=== PATIENT | female | born 1960 | race Caucasian/White ===

== ENCOUNTER 2018-07-03 12:06 | Inpatient (IN) | payer MEDICAID ==
[~2018-07-03] VITALS: Ht 167.6 cm; Wt 106.6 kg
[2018-07-03] MEDS ORDERED: SPIR25TA PO (12:50)
[2018-07-03] MEDS ORDERED: SACU1TAB PO (12:50)
[2018-07-03] MEDS ORDERED: CARV3.12 PO (12:50)
[2018-07-03] MEDS ORDERED: APIX5TAB PO (12:50)
[2018-07-03] MEDS ORDERED: FURO-151 PO (12:50)
[2018-07-03 13:31] LABS: BASOPHILS # (AUTO) 0.1 K/uL (0.0-8.0); EOSINOPHILS # (AUTO) 0.1 K/uL (0.0-0.7); EOSINOPHILS % (AUTO) 0.9 % (0.0-7.0); HEMOGLOBIN 15.8 g/dL (10.9-14.3); LYMPHOCYTES # (AUTO) 2.8 K/uL (20.0-40.0); LYMPHOCYTES % (AUTO) 23.1 % (20.5-51.5); MEAN CORPUSCULAR HEMOGLOBIN 28.1 uug (24.7-32.8); MEAN CORPUSCULAR HGB CONC 33 g/dL (32.3-35.6); MEAN CORPUSCULAR VOLUME 85.6 fL (75.5-95.3); MONOCYTES # (AUTO) 0.7 K/uL (2.0-10.0); MONOCYTES % (AUTO) 6.2 % (0.0-11.0); NEUTROPHILS # (AUTO) 8.2 K/uL (1.8-8.9); NEUTROPHILS % (AUTO) 68.8 % (38.5-71.5); PLATELET COUNT (AUTO) 546 K/uL (179-408); WHITE BLOOD COUNT (AUTO) 11.9 K/uL (3.8-11.8)
[2018-07-03 13:36] LABS: CREATININE 1.6 mg/dL (0.6-1.3); POTASSIUM 4.8 mmol/L (3.5-5.1)
[2018-07-03 13:52] LABS: BILIRUBIN,DIRECT 0.1 mg/dL (0.0-0.2); BILIRUBIN,TOTAL 0.5 mg/dL (0.2-1.0); TOTAL PROTEIN, SERUM 9.7 g/dL (6.4-8.2)
[2018-07-03] MEDS ORDERED: ONDANSETRON 4 MG/2 ML VIAL IV ONE (14:15)
[2018-07-03] MEDS ORDERED: ONDANSETRON 4 MG/2 ML VIAL ONE (14:20)
[2018-07-03] MEDS ORDERED: HYDROCODONE/APAP 10-325 MG TABLET PO ONE (15:15)
[2018-07-03] MEDS ORDERED: HYDROCODONE/APAP 10-325 MG TABLET ONE (15:15)
[2018-07-03 16:00] VITALS: BP 106/63
[2018-07-03] MEDS ORDERED: HOME MED MISCELLANEOUS PO SCH (17:00)
[2018-07-03] MEDS ORDERED: HYDROCODONE/APAP 5-325MG TABLET PO PRN (17:00)
[2018-07-03] MEDS ORDERED: Z GUARD REMEDY PASTE 57 GM TUBE TOP PRN (17:00)
[2018-07-03] MEDS ORDERED: MAGNESIUM HYDROXIDE 30 ML LIQUID UDC PO PRN (17:00)
[2018-07-03] MEDS ORDERED: ACETAMINOPHEN 325 MG TABLET PO PRN (17:00)
[2018-07-03] MEDS ORDERED: SWABABLE VALVE TRANSFER SET EA MC ONE (17:23)
[2018-07-03] MEDS ORDERED: NORMAL SALINE FLUSH 10 ML DISP.SYRIN ONE (17:23)
[2018-07-03] MEDS ORDERED: IOHEXOL 350 100 ML INFUS..BTL ONE (17:24)
[2018-07-03] MEDS ORDERED: IV NORMAL SALINE 250 ML IV ONE (17:24)
[2018-07-03] MEDS: ONDANSETRON 4 MG/2 ML VIAL IV PRN ×2 (18:21→23:44)
[2018-07-03 19:59] VITALS: BP 115/57
[2018-07-03] MEDS: ENTRESTO PO SCH (21:37)
[2018-07-03] MEDS: CARVEDILOL 3.125 MG TABLET PO SCH (21:38)
[2018-07-03] MEDS: MORPHINE SULFATE 2 MG/1 ML DISP.SYRIN IV PRN (22:34)
[2018-07-03] MEDS: TEMAZEPAM 15 MG CAPSULE PO PRN (23:46)
[2018-07-04 01:18] VITALS: BP 104/53
[2018-07-04] MEDS: MORPHINE SULFATE 2 MG/1 ML DISP.SYRIN IV PRN ×2 (03:17→08:17)
[2018-07-04 05:07] VITALS: BP 114/63
[2018-07-04] MEDS: ONDANSETRON 4 MG/2 ML VIAL IV PRN ×3 (05:47→21:04)
[2018-07-04 05:55] LABS: BASOPHILS # (AUTO) 0.1 K/uL (0.0-8.0); BASOPHILS % (AUTO) 1.4 % (0.0-2.0); EOSINOPHILS # (AUTO) 0.1 K/uL (0.0-0.7); HEMATOCRIT 42.5 % (31.2-41.9); HEMOGLOBIN 14.4 g/dL (10.9-14.3); LYMPHOCYTES # (AUTO) 2.8 K/uL (20.0-40.0); LYMPHOCYTES % (AUTO) 28.6 % (20.5-51.5); MEAN CORPUSCULAR HEMOGLOBIN 28.9 uug (24.7-32.8); MEAN CORPUSCULAR HGB CONC 34 g/dL (32.3-35.6); MEAN CORPUSCULAR VOLUME 85.5 fL (75.5-95.3); MONOCYTES % (AUTO) 9.9 % (0.0-11.0); NEUTROPHILS # (AUTO) 5.8 K/uL (1.8-8.9); NEUTROPHILS % (AUTO) 59.1 % (38.5-71.5); PLATELET COUNT (AUTO) 405 K/uL (179-408); RED BLOOD CELL COUNT(AUTO) 4.98 MIL/uL (3.63-4.92); WHITE BLOOD COUNT (AUTO) 9.7 K/uL (3.8-11.8)
[2018-07-04 06:18] LABS: CREATININE 1.3 mg/dL (0.6-1.3); MAGNESIUM 2.1 mg/dL (1.8-2.4); PHOSPHOROUS 4.4 mg/dL (2.5-4.9); POTASSIUM 3.7 mmol/L (3.5-5.1)
[2018-07-04 06:21] LABS: THYROID STIMULATING HORMONE 1.973 mIU/mL (0.358-3.740)
[2018-07-04] MEDS: PANTOPRAZOLE SODIUM 40 MG TABLET.DR PO SCH (06:46)
[2018-07-04] MEDS: SPIRONOLACTONE 25 MG TABLET PO SCH (08:15)
[2018-07-04] MEDS: CARVEDILOL 3.125 MG TABLET PO SCH ×2 (08:26→21:08)
[2018-07-04] MEDS: ENTRESTO PO SCH ×2 (08:29→21:09)
[2018-07-04] MEDS ORDERED: MORPHINE SULFATE 4 MG/1 ML DISP.SYRIN IV PRN (09:00)
[2018-07-04] MEDS ORDERED: FUROSEMIDE 40 MG TABLET PO SCH (09:00)
[2018-07-04] MEDS: LORAZEPAM 2 MG/1 ML VIAL IV PRN ×2 (09:52→23:00)
[2018-07-04 11:01] LABS: *BLOOD, URINE 1+ (NEGATIVE); *CLARITY,URINE CLEAR (CLEAR); *COLOR,URINE YELLOW (YELLOW); *KETONES,URINE 1+ (NEGATIVE); *UROBILINOGEN,URINE 0.2 E.U./dl (NORMAL); LEUKOCYTE ESTERASE ,URINE NEGATIVE (NEGATIVE); NITRITE, URINE NEGATIVE (NEGATIVE); PH,URINE 5.5 (5.0-8.0); UGLUCOSE NEGATIVE (NEGATIVE)
[2018-07-04 11:08] LABS: *BILIRUBIN,URIN 1+ (NEGATIVE)
[2018-07-04 11:09] LABS: WBC,URINE 20-50 /HPF (0-3)
[2018-07-04 11:10] LABS: BACTERIA,URINE FEW /HPF (NONE SEEN); SQUAMOUS EPITHELIAL CELL,UR MANY /HPF (NONE SEEN)
[2018-07-04] MEDS ORDERED: MORPHINE SULFATE 2 MG/1 ML DISP.SYRIN IV PRN ×2 (11:30→18:00)
[2018-07-04 12:17] VITALS: BP 104/62
[2018-07-04] MEDS ORDERED: MORPHINE SULFATE 2 MG/1 ML DISP.SYRIN IV STA (14:05)
[2018-07-04 15:21] VITALS: BP 90/58
[2018-07-04 15:59] LABS: AMYLASE 31 U/L (25-115); LIPASE 92 U/L (73-393)
[2018-07-04] MEDS: METOCLOPRAMIDE HCL 10 MG/2 ML VIAL IV SCH (17:00)
[2018-07-04 20:28] VITALS: BP 117/60
[2018-07-04] MEDS: ATORVASTATIN 40 MG TABLET PO SCH (21:07)
[2018-07-04] MEDS: MORPHINE SULFATE 4 MG/1 ML DISP.SYRIN IV PRN (21:09)
[2018-07-05] MEDS: METOCLOPRAMIDE HCL 10 MG/2 ML VIAL IV SCH ×5 (00:12→23:50)
[2018-07-05] MEDS: TEMAZEPAM 15 MG CAPSULE PO PRN ×2 (00:31→23:51)
[2018-07-05] MEDS: MORPHINE SULFATE 4 MG/1 ML DISP.SYRIN IV PRN ×3 (03:51→21:11)
[2018-07-05 05:06] VITALS: BP 106/62
[2018-07-05] MEDS ORDERED: METOCLOPRAMIDE HCL 10 MG/2 ML VIAL ONE (06:08)
[2018-07-05] MEDS: PANTOPRAZOLE SODIUM 40 MG TABLET.DR PO SCH (06:18)
[2018-07-05 07:18] LABS: BASOPHILS # (AUTO) 0.1 K/uL (0.0-8.0); BASOPHILS % (AUTO) 0.8 % (0.0-2.0); EOSINOPHILS # (AUTO) 0.1 K/uL (0.0-0.7); EOSINOPHILS % (AUTO) 0.8 % (0.0-7.0); HEMATOCRIT 42.4 % (31.2-41.9); HEMOGLOBIN 14.4 g/dL (10.9-14.3); LYMPHOCYTES # (AUTO) 2.9 K/uL (20.0-40.0); LYMPHOCYTES % (AUTO) 32.4 % (20.5-51.5); MEAN CORPUSCULAR HEMOGLOBIN 28.9 uug (24.7-32.8); MEAN CORPUSCULAR HGB CONC 34 g/dL (32.3-35.6); MEAN CORPUSCULAR VOLUME 84.8 fL (75.5-95.3); MONOCYTES # (AUTO) 0.9 K/uL (2.0-10.0); MONOCYTES % (AUTO) 9.6 % (0.0-11.0); NEUTROPHILS % (AUTO) 56.4 % (38.5-71.5)
[2018-07-05 07:19] LABS: BILIRUBIN,TOTAL 0.5 mg/dL (0.2-1.0); CREATININE 1.8 mg/dL (0.6-1.3); MAGNESIUM 2.2 mg/dL (1.8-2.4); PHOSPHOROUS 4.5 mg/dL (2.5-4.9); POTASSIUM 3.8 mmol/L (3.5-5.1); TOTAL PROTEIN, SERUM 8.4 g/dL (6.4-8.2)
[2018-07-05 07:24] LABS: PLATELET COUNT (AUTO) 241 K/uL (179-408)
[2018-07-05 08:00] VITALS: BP 104/52
[2018-07-05] MEDS: CARVEDILOL 3.125 MG TABLET PO SCH ×2 (09:00→20:22)
[2018-07-05] MEDS: SPIRONOLACTONE 25 MG TABLET PO SCH (09:14)
[2018-07-05] MEDS: ONDANSETRON 4 MG/2 ML VIAL IV PRN ×2 (09:15→20:24)
[2018-07-05] MEDS: ENTRESTO PO SCH ×2 (09:29→20:22)
[2018-07-05 11:16] VITALS: BP 92/51
[2018-07-05] MEDS: LORAZEPAM 2 MG/1 ML VIAL IV PRN (13:16)
[2018-07-05 14:24] LABS: *BILIRUBIN,URIN 1+ (NEGATIVE); *BLOOD, URINE NEGATIVE (NEGATIVE); *CLARITY,URINE SLIGHTLY CLOUDY (CLEAR); *COLOR,URINE YELLOW (YELLOW); *KETONES,URINE NEGATIVE (NEGATIVE); *UROBILINOGEN,URINE 0.2 E.U./dl (NORMAL); LEUKOCYTE ESTERASE ,URINE NEGATIVE (NEGATIVE); NITRITE, URINE NEGATIVE (NEGATIVE); PH,URINE 5.5 (5.0-8.0); UGLUCOSE NEGATIVE (NEGATIVE)
[2018-07-05 15:17] LABS: *CREATININE,URINE 348.2 mg/dL (30-125); *URINE TOTAL PROTEIN RANDOM 46.4 mg/dL (<150/24HR)
[2018-07-05 16:20] LABS: BACTERIA,URINE FEW /HPF (NONE SEEN); MUCUS,URINE MANY /LPF (0-FEW); RBC,URINE 0-3 /HPF (0-3); SQUAMOUS EPITHELIAL CELL,UR MODERATE /HPF (NONE SEEN)
[2018-07-05 18:09] VITALS: BP 90/54
[2018-07-05 20:10] VITALS: BP 105/54
[2018-07-05] MEDS: ATORVASTATIN 40 MG TABLET PO SCH (20:21)
[2018-07-06] MEDS: LORAZEPAM 2 MG/1 ML VIAL IV PRN ×2 (02:01→08:46)
[2018-07-06] MEDS: MORPHINE SULFATE 4 MG/1 ML DISP.SYRIN IV PRN ×2 (05:20→10:07)
[2018-07-06 05:36] VITALS: BP 100/54
[2018-07-06] MEDS ORDERED: METOCLOPRAMIDE HCL 10 MG/2 ML VIAL ONE (06:01)
[2018-07-06] MEDS: METOCLOPRAMIDE HCL 10 MG/2 ML VIAL IV SCH ×2 (06:30→12:00)
[2018-07-06] MEDS: PANTOPRAZOLE SODIUM 40 MG TABLET.DR PO SCH (06:30)
[2018-07-06 06:37] LABS: BILIRUBIN,TOTAL 0.5 mg/dL (0.2-1.0); CREATININE 1.4 mg/dL (0.6-1.3); MAGNESIUM 2.2 mg/dL (1.8-2.4); PHOSPHOROUS 3.4 mg/dL (2.5-4.9); POTASSIUM 3.5 mmol/L (3.5-5.1); TOTAL PROTEIN, SERUM 7.8 g/dL (6.4-8.2)
[2018-07-06 06:46] LABS: BASOPHILS # (AUTO) 0.1 K/uL (0.0-8.0); HEMOGLOBIN 13.4 g/dL (10.9-14.3); MEAN CORPUSCULAR HGB CONC 33 g/dL (32.3-35.6); MEAN CORPUSCULAR VOLUME 85.3 fL (75.5-95.3); NEUTROPHILS # (AUTO) 4.9 K/uL (1.8-8.9)
[2018-07-06 07:02] LABS: BASOPHILS % (AUTO) 1.2 % (0.0-2.0); EOSINOPHILS # (AUTO) 0.2 K/uL (0.0-0.7); EOSINOPHILS % (AUTO) 1.7 % (0.0-7.0); HEMATOCRIT 40.7 % (31.2-41.9); LYMPHOCYTES # (AUTO) 3.6 K/uL (20.0-40.0); LYMPHOCYTES % (AUTO) 37.1 % (20.5-51.5); MEAN CORPUSCULAR HEMOGLOBIN 28.2 uug (24.7-32.8); MONOCYTES # (AUTO) 0.9 K/uL (2.0-10.0); MONOCYTES % (AUTO) 9.4 % (0.0-11.0); NEUTROPHILS % (AUTO) 50.6 % (38.5-71.5); RED BLOOD CELL COUNT(AUTO) 4.77 MIL/uL (3.63-4.92); WHITE BLOOD COUNT (AUTO) 9.7 K/uL (3.8-11.8)
[2018-07-06 07:06] LABS: PLATELET COUNT (AUTO) 320 K/uL (179-408)
[2018-07-06] MEDS: ENTRESTO PO SCH (08:43)
[2018-07-06] MEDS: CARVEDILOL 3.125 MG TABLET PO SCH (08:45)
[2018-07-06 11:00] VITALS: BP 105/65
[2018-07-07 07:06] LABS: A/G RATIO 1.1 (0.7-1.7); ALBUMIN 3.9 g/dL (2.9-4.4); ALPHA-1-GLOBULIN 0.2 g/dL (0.0-0.4); BETA GLOBULIN 1.3 g/dL (0.7-1.3); GAMMA GLOBULIN 1.2 g/dL (0.4-1.8); GLOBULIN, TOTAL 3.7 g/dL (2.2-3.9); M-SPIKE Not Observed g/dL (Not Observed)
== END 2018-07-06 12:20 | disposition home health service (06) | DRG 194 ==
LOC: ER 12:06 → TELE3 15:24 → MEDSURG3 07-04 17:55
PROVIDERS: ADMIT Nurse Practitioner Acute Care; ATTEND Nurse Practitioner Acute Care
PROC: 05HY33Z Insertion of Infusion Device into Upper Vein, Percutaneous Approach (ICD-10-PCS; principal; 2018-07-03)
DX: I11.0 Hypertensive heart disease with heart failure (principal); N17.0 Acute kidney failure with tubular necrosis; K83.1 Obstruction of bile duct; K50.90 Crohn's disease, unspecified, without complications; E66.01 Morbid (severe) obesity due to excess calories; K31.84 Gastroparesis; I50.33 Acute on chronic diastolic (congestive) heart failure; Z86.711 Personal history of pulmonary embolism; Z90.49 Acquired absence of other specified parts of digestive tract; Z79.899 Other long term (current) drug therapy; Z90.710 Acquired absence of both cervix and uterus; E78.5 Hyperlipidemia, unspecified; Z79.01 Long term (current) use of anticoagulants; Z86.718 Personal history of other venous thrombosis and embolism; Z68.38 Body mass index [BMI] 38.0-38.9, adult; Z98.890 Other specified postprocedural states; I42.9 Cardiomyopathy, unspecified; F41.9 Anxiety disorder, unspecified; K76.0 Fatty (change of) liver, not elsewhere classified; Z87.891 Personal history of nicotine dependence
CPT/HCPCS: 36415; 36569; 70030-TC; 71045; 76700; 78579; 83690; 83735; 83970; 84100; 84155; 84156; 84165; 84300; 84443; 85025; 85730; 93005; 93307; A4663; A9540; A9567; G0378; J2060; J2270; J2405; J2765; J3490; J7050; Q9967

== ENCOUNTER 2018-07-11 11:07 | Emergency (ER) | payer MEDICAID ==
[~2018-07-11] VITALS: Ht 167.6 cm; Wt 106.6 kg
[~2018-07-11 11:07] MED LIST: APIX5TAB PO; CARV3.12 PO; SACU1TAB PO
--- NOTE | 2018-07-11 12:58 | NUR ---
Patient discharged to home in stable conditon. Written and verbal after care instructions given. Patient verbalizes understanding of instructions.
== END 2018-07-11 12:58 | disposition home or self-care (01) ==
LOC: ER 11:07
DX: S50.11XA Contusion of right forearm, initial encounter (principal); S80.02XA Contusion of left knee, initial encounter; S80.01XA Contusion of right knee, initial encounter; S90.32XA Contusion of left foot, initial encounter; S09.90XA Unspecified injury of head, initial encounter; I11.0 Hypertensive heart disease with heart failure; I50.9 Heart failure, unspecified; Z90.710 Acquired absence of both cervix and uterus; Z90.49 Acquired absence of other specified parts of digestive tract; Z88.8 Allergy status to other drugs, medicaments and biological substances; Z79.899 Other long term (current) drug therapy; W01.0XXA Fall on same level from slipping, tripping and stumbling without subsequent striking against object, initial encounter; Y93.89 Activity, other specified; Y92.89 Other specified places as the place of occurrence of the external cause; Y99.8 Other external cause status
CPT/HCPCS: 70450; 73110; A4663

== ENCOUNTER 2018-09-06 11:18 | Emergency (ER) | payer MEDICAID ==
[~2018-09-06] VITALS: Ht 167.6 cm; Wt 108.9 kg
[2018-09-06] MEDS ORDERED: FURO-151 PO (11:46)
[2018-09-06] MEDS ORDERED: SPIR25TA PO (11:46)
[2018-09-06] MEDS ORDERED: MISCELLANEOUS MED XX ONE (12:00)
[2018-09-06] MEDS ORDERED: APIXABAN 5 MG TABLET PO ONE (12:03)
[2018-09-06 12:15] LABS: BASOPHILS # (AUTO) 0.2 K/uL (0.0-8.0); BASOPHILS % (AUTO) 1.9 % (0.0-2.0); EOSINOPHILS # (AUTO) 0.2 K/uL (0.0-0.7); EOSINOPHILS % (AUTO) 2.2 % (0.0-7.0); HEMATOCRIT 37.7 % (31.2-41.9); HEMOGLOBIN 12.6 g/dL (10.9-14.3); LYMPHOCYTES # (AUTO) 2.4 K/uL (20.0-40.0); LYMPHOCYTES % (AUTO) 26.2 % (20.5-51.5); MEAN CORPUSCULAR HEMOGLOBIN 28.9 uug (24.7-32.8); MEAN CORPUSCULAR HGB CONC 33 g/dL (32.3-35.6); MEAN CORPUSCULAR VOLUME 86.8 fL (75.5-95.3); MONOCYTES # (AUTO) 0.5 K/uL (2.0-10.0); MONOCYTES % (AUTO) 5.9 % (0.0-11.0); NEUTROPHILS # (AUTO) 5.8 K/uL (1.8-8.9); NEUTROPHILS % (AUTO) 63.8 % (38.5-71.5); PLATELET COUNT (AUTO) 451 K/uL (179-408); RED BLOOD CELL COUNT(AUTO) 4.35 MIL/uL (3.63-4.92)
[2018-09-06 12:28] LABS: CREATININE 1.1 mg/dL (0.6-1.3); POTASSIUM 3.8 mmol/L (3.5-5.1)
[2018-09-06 12:41] LABS: BILIRUBIN,DIRECT 0.1 mg/dL (0.0-0.2); BILIRUBIN,TOTAL 0.4 mg/dL (0.2-1.0); TOTAL PROTEIN, SERUM 7.9 g/dL (6.4-8.2)
--- NOTE | 2018-09-06 13:43 | NUR ---
Patient discharged to home in stable conditon. Written and verbal after care instructions given. Patient verbalizes understanding of instructions.PT WALKS IN STEADY GAIT. A COPY OF ALL THE STUDIES PROVIDED FOR PT FOR FOLLOW UP
[2018-09-06 13:45] VITALS: BP 129/77
== END 2018-09-06 13:47 | disposition home or self-care (01) ==
LOC: ER 11:18
DX: M79.662 Pain in left lower leg (principal); I11.0 Hypertensive heart disease with heart failure; I50.9 Heart failure, unspecified; Z90.49 Acquired absence of other specified parts of digestive tract; Z90.710 Acquired absence of both cervix and uterus; Z88.8 Allergy status to other drugs, medicaments and biological substances; Z79.899 Other long term (current) drug therapy; Z86.73 Personal history of transient ischemic attack (TIA), and cerebral infarction without residual deficits
CPT/HCPCS: 36415; 70030-TC; 71045; 85025; 85730; 93005; A4663

== ENCOUNTER 2019-07-22 17:24 | Inpatient (IN) | payer MEDICARE, OTHER ==
[~2019-07-22] VITALS: Ht 170.2 cm; Wt 113.4 kg
[~2019-07-22 17:24] MED LIST changes: +FURO-151 PO; +SPIR25TA PO
[2019-07-22] MEDS ORDERED: ASPIRIN 325 MG TABLET PO ONE (17:45)
[2019-07-22 18:28] LABS: BASOPHILS # (AUTO) 0.1 K/uL (0.0-8.0); BASOPHILS % (AUTO) 1.5 % (0.0-2.0); EOSINOPHILS # (AUTO) 0.1 K/uL (0.0-0.7); EOSINOPHILS % (AUTO) 1.3 % (0.0-7.0); HEMOGLOBIN 13.7 g/dL (10.9-14.3); LYMPHOCYTES % (AUTO) 31.5 % (20.5-51.5); MEAN CORPUSCULAR HEMOGLOBIN 28.6 uug (24.7-32.8); MEAN CORPUSCULAR HGB CONC 33 g/dL (32.3-35.6); MEAN CORPUSCULAR VOLUME 85.9 fL (75.5-95.3); MONOCYTES # (AUTO) 0.6 K/uL (2.0-10.0); MONOCYTES % (AUTO) 6.9 % (0.0-11.0); NEUTROPHILS # (AUTO) 5.6 K/uL (1.8-8.9); NEUTROPHILS % (AUTO) 58.8 % (38.5-71.5); PLATELET COUNT (AUTO) 467 K/uL (179-408); RED BLOOD CELL COUNT(AUTO) 4.78 MIL/uL (3.63-4.92); WHITE BLOOD COUNT (AUTO) 9.5 K/uL (3.8-11.8)
[2019-07-22 18:37] LABS: CREATININE 1.1 mg/dL (0.6-1.3); POTASSIUM 3.7 mmol/L (3.5-5.1)
[2019-07-22] MEDS ORDERED: ASPIRIN 325 MG TABLET ONE (18:39)
[2019-07-22 18:49] LABS: BILIRUBIN,DIRECT 0.1 mg/dL (0.0-0.2); BILIRUBIN,TOTAL 0.3 mg/dL (0.2-1.0); TOTAL PROTEIN, SERUM 8.1 g/dL (6.4-8.2)
--- NOTE | 2019-07-22 19:15 | NUR ---
Report received from AM nurse. Received patient awake, alert and oriented. Latest VS taken and recorded. Pt is on Tele on NSR @ 84bpm with rare PVC's. Stable and not in any distress. Per patient, she is still feeling the palpitations. Fall and safety precautions in place. Will continue to monitor.
--- NOTE | 2019-07-22 19:45 | NUR ---
Dr Simmons s/w . [facility] who accepted patient. Per Dr. Simmons, admitting Dx: Chest Pain. Notified Charge Nurse in 3rd floor, Pt will be going to Room 304, waiting for receiving nurse to call back.
[2019-07-22] MEDS ORDERED: TEMA30CA PO (19:47)
[2019-07-22] MEDS ORDERED: ROPI3TAB PO (19:47)
--- NOTE | 2019-07-22 20:11 | NUR ---
Report given to Sherine Ryan.
[2019-07-22 21:00] VITALS: BP 101/48
--- NOTE | 2019-07-22 21:00 | NUR ---
Pt ready to be sent upstairs. Belongings list completed. Latest VS taken and recorded, stable. RN Transferred via gurney to Room 304. Third floor nurses received patient in stable condition.
[2019-07-22] MEDS ORDERED: NITROGLYCERIN 0.4 MG/TAB BOTTLE SL PRN (22:00)
[2019-07-22] MEDS ORDERED: ONDANSETRON 4 MG/2 ML VIAL IV PRN (22:00)
[2019-07-22] MEDS ORDERED: ACETAMINOPHEN 325 MG TABLET PO PRN (22:00)
--- NOTE | 2019-07-22 23:09 | NUR ---
received orders from dr. garcia, to start medications eliquis, carvedilol, and requip tonight for patient.
[2019-07-22] MEDS: CARVEDILOL 3.125 MG TABLET PO SCH (23:36)
[2019-07-22] MEDS: TEMAZEPAM 15 MG CAPSULE PO PRN (23:36)
[2019-07-22] MEDS: ropiniROLE 1 MG TABLET PO SCH (23:37)
[2019-07-23] VITALS: BP 129/45
[2019-07-23] MEDS: APIXABAN 5 MG TABLET PO SCH ×3 (00:05→16:33)
--- NOTE | 2019-07-23 03:07 | NUR ---
c/o of chest pain. nitro x1 given. will continue to monitor patient. remaining nitro in pyxis tray.
[2019-07-23 04:00] VITALS: BP 98/52
--- NOTE | 2019-07-23 05:25 | NUR ---
PATIENT AAOX3. NO S/S OF ACUTE DISTRESS. V/S STABLE. SKIN INTACT. NSR WITH OCCASIONAL PVCS ON TELE MONITOR. C/O OF CHEST PAIN. ADMINISTERED NITRO. IV INTACT AND PATENT. WILL CONTINUE TO MONITOR.
[2019-07-23] MEDS: PANTOPRAZOLE SODIUM 40 MG TABLET.DR PO SCH (06:12)
--- NOTE | 2019-07-23 08:00 | NUR ---
Received patient in bed, awake and verbally responsive. No signs of distress noted. NO complain of Chest Pain at this time. Afebrile. Kept clean and comfortable. Kept the call light within easy reach. Will continue to monitor.,
[2019-07-23] MEDS: CARVEDILOL 3.125 MG TABLET PO SCH ×2 (08:24→21:00)
[2019-07-23] MEDS: SPIRONOLACTONE 25 MG TABLET PO SCH (08:24)
[2019-07-23] MEDS: ropiniROLE 1 MG TABLET PO SCH ×2 (08:25→16:33)
[2019-07-23] MEDS: FUROSEMIDE 40 MG TABLET PO SCH (08:25)
[2019-07-23] MEDS ORDERED: CARVEDILOL 3.125 MG TABLET PO SCH (09:00)
[2019-07-23] MEDS ORDERED: ropiniROLE 1 MG TABLET PO SCH (09:00)
[2019-07-23] MEDS ORDERED: APIXABAN 5 MG TABLET PO SCH (09:00)
[2019-07-23 11:56] LABS: EOSINOPHILS # (AUTO) 0.1 K/uL (0.0-0.7); LYMPHOCYTES # (AUTO) 2.8 K/uL (20.0-40.0)
[2019-07-23 12:03] LABS: BASOPHILS # (AUTO) 0.1 K/uL (0.0-8.0); BASOPHILS % (AUTO) 1.6 % (0.0-2.0); HEMATOCRIT 39.7 % (31.2-41.9); HEMOGLOBIN 13.3 g/dL (10.9-14.3); MEAN CORPUSCULAR HEMOGLOBIN 28.7 uug (24.7-32.8); MEAN CORPUSCULAR HGB CONC 33 g/dL (32.3-35.6); MEAN CORPUSCULAR VOLUME 85.7 fL (75.5-95.3); MONOCYTES # (AUTO) 0.6 K/uL (2.0-10.0); MONOCYTES % (AUTO) 8.5 % (0.0-11.0); NEUTROPHILS # (AUTO) 3.3 K/uL (1.8-8.9); NEUTROPHILS % (AUTO) 47.9 % (38.5-71.5); PLATELET COUNT (AUTO) 475 K/uL (179-408); RED BLOOD CELL COUNT(AUTO) 4.63 MIL/uL (3.63-4.92)
[2019-07-23 12:04] LABS: WHITE BLOOD COUNT (AUTO) 6.9 K/uL (3.8-11.8)
[2019-07-23 12:11] LABS: BILIRUBIN,TOTAL 0.3 mg/dL (0.2-1.0); CREATININE 1.2 mg/dL (0.6-1.3); MAGNESIUM 2.1 mg/dL (1.8-2.4); POTASSIUM 3.5 mmol/L (3.5-5.1); TOTAL PROTEIN, SERUM 7.9 g/dL (6.4-8.2)
[2019-07-23 12:19] LABS: THYROID STIMULATING HORMONE 1.044 mIU/mL (0.358-3.740)
[2019-07-23 13:44] VITALS: BP 121/60
[2019-07-23] MEDS: HYDROCODONE/APAP 5-325MG TABLET PO PRN ×2 (16:58→23:11)
--- NOTE | 2019-07-23 18:20 | NUR ---
Patient in bed, awake and verbally responsive. No signs of distress noted. No SOB. saturating 96% on Room Air. Pain medication, [place] 5/325mg x 1 given for Right Chest pain. Echo was done, with EF of 50-55%. All needs attended and met. Kept clean and comfortable. Will endorse to Oncoming Nurse.
--- NOTE | 2019-07-23 19:30 | NUR ---
PATIENT ALERT ORIENTED, NO SOB NO CHEST PAIN AT THIS TIME. PATIENT CONT ON PAIN MANAGEMENT, CALL LIGHT WITHIN REACH.
[2019-07-23 20:19] VITALS: BP 101/40
[2019-07-23] MEDS ORDERED: DOCUSATE SODIUM 100 MG CAPSULE PO SCH (21:00)
[2019-07-23] MEDS: TEMAZEPAM 15 MG CAPSULE PO PRN (21:33)
[2019-07-23] MEDS ORDERED: POTASSIUM CHLORIDE 20 MEQ TAB.PRT.SR PO ONE (21:45)
[2019-07-24 01:07] VITALS: BP 106/61
[2019-07-24 05:27] VITALS: BP 108/55
[2019-07-24] MEDS: PANTOPRAZOLE SODIUM 40 MG TABLET.DR PO SCH (06:34)
--- NOTE | 2019-07-24 06:43 | NUR ---
PATIENT ALERT ORIENTED, NO SOB NO CHEST PAIN, TELE MONITOR SINUS RHYTHM WITH PVC. PATIENT SLEPT MOST OF THE NIGHT, CONT ON PAIN MANAGEMENT DUE PAIN ON THE CHEST AREA, CONT TO MONITOR.
--- NOTE | 2019-07-24 08:25 | NUR ---
RECEIVED PATIENT IN BED AWAKE ALERT AND ORIENTED DENIES PAIN OR DISCOMFORTS NO CHEST PAIN AT THIS TIME TELE MONITORED SR CALL LIGHT AND PERSONAL BELONGINGS ARE WITHIN EASY REACH WILL CONTINUE TO OBSERVE.
[2019-07-24] MEDS: APIXABAN 5 MG TABLET PO SCH (08:55)
[2019-07-24] MEDS: ropiniROLE 1 MG TABLET PO SCH (08:56)
[2019-07-24] MEDS: FUROSEMIDE 40 MG TABLET PO SCH (08:56)
[2019-07-24] MEDS: SPIRONOLACTONE 25 MG TABLET PO SCH (08:56)
[2019-07-24] MEDS ORDERED: METOPROLOL SUCCINATE XL 50 MG TAB.SR.24H PO SCH (09:00)
[2019-07-24 11:59] VITALS: BP 116/67
[2019-07-24] MEDS ORDERED: METO-357 PO (14:24)
[2019-07-24] MEDS ORDERED: ATOR10TA PO (14:24)
--- NOTE | 2019-07-24 14:30 | NUR ---
NEW ORDER FOR DISCHARGE RECEIVED FROM DR RASHID AND NOTED AWAITING FOR FINAL DISCHARGE INSTRUCTIONS
--- NOTE | 2019-07-24 15:45 | NUR ---
PATIENT EXPRESSED UNDERSTANDING AWARE TO LEAD SALES CONSULTANT HER MEDICATIONS FROM HER PRIVATE PHARMACY DISCHARGED IN SATISFACTORY CONDITION WITH ALL OF HER PERSONAL BELONGINGS.
--- NOTE | 2019-07-24 15:45 | NUR ---
PATIENT DISCHARGED PICKED UP BY HER SON CAROL IN SATISFACTORY CONDITION WITH DISCHARGE INSTRUCTIONS AND PATIENT INSTRUCTED TO CALL FOR A FOLLOW UP APPOINTMENT WITH HER PRIMARY DOCTOR TO HAVE HER ELECTROLYTES RECHECKED GOAL FOR HER POTASSIUM SHOULD BE OVER 4
== END 2019-07-24 15:30 | disposition home or self-care (01) | DRG 315 ==
LOC: ER 17:24 → TELE3 20:25
PROVIDERS: ADMIT Internal Medicine; ATTEND Internal Medicine
DX: I95.89 Other hypotension (principal); K50.90 Crohn's disease, unspecified, without complications; I50.22 Chronic systolic (congestive) heart failure; D68.69 Other thrombophilia; I42.8 Other cardiomyopathies; Z86.711 Personal history of pulmonary embolism; Z79.01 Long term (current) use of anticoagulants; R00.2 Palpitations; Z86.718 Personal history of other venous thrombosis and embolism; I11.0 Hypertensive heart disease with heart failure; Z90.5 Acquired absence of kidney; Z90.49 Acquired absence of other specified parts of digestive tract; Z90.710 Acquired absence of both cervix and uterus; Z87.891 Personal history of nicotine dependence; E66.9 Obesity, unspecified; E78.5 Hyperlipidemia, unspecified; Z68.39 Body mass index [BMI] 39.0-39.9, adult; E11.9 Type 2 diabetes mellitus without complications; T50.905A Adverse effect of unspecified drugs, medicaments and biological substances, initial encounter; Y92.009 Unspecified place in unspecified non-institutional (private) residence as the place of occurrence of the external cause; I49.3 Ventricular premature depolarization
CPT/HCPCS: 36415; 70030-TC; 71045; 83735; 84443; 85025; 93005; 93307; A4663; G0378